=== PATIENT | female | born 1945 | race Caucasian/White ===

== ENCOUNTER 2023-05-08 13:23 | Emergency (ER) | payer OTHER ==
[2023-05-08 13:32] VITALS: BMI 20.3
[2023-05-08 15:05] LABS: EOS % 1.9 % (0-4.5); HEMATOCRIT 35.4 % (32.4-45.2); HEMOGLOBIN 11.8 GM/dL (10.7-15.3); LYMPH % 17.4 % (8-40); MCH 30.9 pg (25.7-33.7); MCHC 33.4 g/dl (32.0-36.0); MEAN CELL VOLUME 92.5 fl (80-96); MEAN PLT VOLUME 7.9 fl (7.5-11.1); MONO % 7.9 % (3.8-10.2); NEUT % 71.8 % (42.8-82.8); PLATELET COUNT 313 10^3/uL (134-434); RBC 3.83 M/mm3 (3.60-5.2); RDW 13.1 % (11.6-15.6)
[2023-05-08] MEDS ORDERED: ACETAMINOPHEN 325 MG TABLET (FP) ONE (15:36)
[2023-05-08] MEDS: ACETAMINOPHEN 325 MG TABLET (FP) PO ONE (15:37)
[2023-05-08 16:03] LABS: ERYTHROCYTE SEDIMENTATION RATE 72 mm/hr (0-30)
[2023-05-08 16:45] LABS: POTASSIUM 4.2 mmol/L (3.5-5.1)
[2023-05-08 16:46] LABS: ALBUMIN 3.3 g/dl (3.4-5.0)
[2023-05-08 16:47] LABS: BLOOD UREA NITROGEN 20.8 mg/dL (7-18); CALCIUM 8.7 mg/dL (8.5-10.1)
[2023-05-08 16:51] LABS: CREATININE 0.6 mg/dL (0.55-1.3)
[2023-05-08 16:52] LABS: BILIRUBIN,TOTAL 0.3 mg/dL (0.2-1); TOT PROT 6.8 g/dl (6.4-8.2)
[2023-05-08] MEDS ORDERED: DALBAVANCIN HCL 500 MG VIAL (RESTRICTED TO ID ONLY) IVPB ONE (17:19)
[2023-05-08] MEDS: DALBAVANCIN HCL 1,500 MG in DEXTROSE 5%-WATER - 500 ML IVPB ONE (17:32)
[2023-05-08 18:31] VITALS: BP 132/59; PULSE 61; RESP 20; TEMP 97.7
== END 2023-05-08 18:32 | disposition home or self-care (01) ==
LOC: JER 13:23
DX: S90.821A Blister (nonthermal), right foot, initial encounter (principal); L03.115 Cellulitis of right lower limb; L08.9 Local infection of the skin and subcutaneous tissue, unspecified; X58.XXXA Exposure to other specified factors, initial encounter
CPT/HCPCS: 36415; 73630-TC-RT-FY; 80053; 85025; 85651; 86140; 87040; 99284-25; J0875